=== PATIENT | female | born 1965 | race Caucasian/White ===

== ENCOUNTER 2025-02-24 10:41 | Emergency (ER) | payer OTHER ==
[~2025-02-24] VITALS: Ht 167.6 cm; Wt 64.0 kg
[2025-02-24 10:47] VITALS: O2SAT 100
[2025-02-24 11:30] LABS: CLARITY URINE CLEAR (CLEAR); COLOR URINE YELLOW (YELLOW); GLUCOSE URINE NEGATIVE (NEGATIVE); KETONES URINE NEGATIVE (NEGATIVE); LEUKOCYTE ESTERASE URINE NEGATIVE (NEGATIVE); NITRITE URINE NEGATIVE (NEGATIVE); OCCULT BLOOD URINE 1+ (NEGATIVE); PROTEIN URINE NEGATIVE (NEGATIVE); SPECIFIC GRAVITY URINE 1.004 (1.005-1.030); UROBILINOGEN URINE 0.2 E.U./dL (0.2-1.0)
[2025-02-24] MEDS ORDERED: IBUP-2028 MT (11:39)
[2025-02-24] MEDS: KETOROLAC 30MG/ML VIAL IM ONE (11:45)
[2025-02-24 11:48] VITALS: BP 140/61; PULSE 52; RESP 16; TEMP 37; O2SAT 100
[2025-02-24 11:54] LABS: BACTERIA URINE FEW; RBC URINE 0-2 /hpf (0-2); SQUAMOUS EPITHELIAL CELL URINE RARE /lpf (RARE/1+); WBC URINE 0-2 /hpf (0-2); YEAST URINE NONE SEEN
== END 2025-02-24 11:48 | disposition home or self-care (01) ==
LOC: ER 10:41
DX: I10 Essential (primary) hypertension (principal); R51.9 Headache, unspecified
CPT/HCPCS: 99283; 81003; 96372; J1885